=== PATIENT | female | born 1985 | race Caucasian/White ===

== ENCOUNTER 2019-09-03 18:48 | Inpatient (IN) | payer OTHER ==
[~2019-09-03] VITALS: Ht 180.3 cm; Wt 77.3 kg
[2019-09-03] MEDS ORDERED: OXYTOCIN 30U/ 0.9% NaCL 500ML 500 ML IV ONE (18:54)
[2019-09-03] MEDS ORDERED: LACTATED RINGERS 1,000 ML IV SCH (18:54)
[2019-09-03] MEDS ORDERED: D5%-LACTATED RINGERS 1,000 ML IV SCH (18:54)
[2019-09-03] MEDS ORDERED: FENTANYL PF 100 MCG/2ML IVPush PRN (19:00)
[2019-09-03] MEDS ORDERED: SODIUM CITRATE/CITRIC ACID 30 ML UDC PO PRN (19:00)
[2019-09-03] MEDS ORDERED: TERBUTALINE 1 MG/ML, 1ML SQ PRN (19:00)
[2019-09-03] MEDS ORDERED: CALCIUM CARBONATE 500 MG TAB.CHEW PO PRN (19:00)
[2019-09-03] MEDS ORDERED: ONDANSETRON 2MG/ML, 2ML IVPush PRN (19:00)
[2019-09-03] MEDS ORDERED: METOCLOPRAMIDE 5 MG/ML, 2ML IVPush PRN (19:00)
[2019-09-03] MEDS ORDERED: TERBUTALINE 1 MG/ML, 1ML IVPush PRN (19:00)
[2019-09-03] MEDS ORDERED: FENTANYL PF 100 MCG/2ML IV PRN (19:00)
[2019-09-03] MEDS ORDERED: OXYTOCIN 30U/ 0.9% NaCL 500ML 500 ML ONE (19:03)
[2019-09-03] MEDS ORDERED: NEWBORN KIT ONE (19:03)
[2019-09-03 19:10] LABS: MEAN CORPUSCULAR HEMOGLOBIN 31.3 pg (27.0-34.8); MEAN CORPUSCULAR HGB CONC 33.9 g/dL (32.4-35.8); MEAN CORPUSCULAR VOLUME 92.5 fL (80-100); MEAN PLATELET VOLUME 7.7 fL (7.4-10.4); PLATELET COUNT 286 x10^3/uL (130-400); RED BLOOD COUNT 4.17 x10^6/uL (3.82-5.3); RED CELL DISTRIBUTION WIDTH 12.7 % (9.6-15.2)
[2019-09-03 19:32] LABS: MD YES
[2019-09-03 19:36] LABS: LYMPH#(MANUAL) 2.31 x10^3/uL (1-3.4); LYMPHS% (MANUAL) 14 % (22-44); MONOS#(MANUAL) 0.66 x10^3/uL (0.3-2.7); MONOS% (MANUAL) 4 % (2-9); SEG#(MANUAL) 13.53 x10^3/uL (1.8-6.8); SEGS% (MANUAL) 82 % (42-75)
[2019-09-03 19:41] LABS: <RBC MORPHOLOGY> NORMAL
[2019-09-03 19:42] LABS: <PLATELET ESTIMATE> ADEQUATE; <PLT MORPHOLOGY> NORMAL PLT MORPH
[2019-09-03] MEDS ORDERED: FENTANYL PF 100 MCG/2ML ONE (20:36)
[2019-09-03] MEDS: OXYTOCIN 30U/ 0.9% NaCL 500ML 500 ML IV SCH (21:08)
[2019-09-03] MEDS ORDERED: ACETAMINOPHEN 325 MG TABLET PO PRN (21:30)
[2019-09-03] MEDS ORDERED: MISOPROSTOL 200 MCG TABLET PR PRN (21:30)
[2019-09-03] MEDS ORDERED: OXYcodone/APAP 5/325MG TABLET PO PRN (21:30)
[2019-09-03] MEDS ORDERED: ONDANSETRON 2MG/ML, 2ML IV PRN (21:30)
[2019-09-03] MEDS ORDERED: SIMETHICONE 80 MG CHEW TAB PO PRN (21:30)
[2019-09-03 22:05] VITALS: BP 122/75
[2019-09-04 02:00] VITALS: BP 107/61
[2019-09-04 05:00] LABS: MEAN CORPUSCULAR HEMOGLOBIN 31.2 pg (27.0-34.8); MEAN CORPUSCULAR HGB CONC 33.8 g/dL (32.4-35.8); MEAN CORPUSCULAR VOLUME 92.1 fL (80-100); MEAN PLATELET VOLUME 7.9 fL (7.4-10.4); PLATELET COUNT 243 x10^3/uL (130-400); RED BLOOD COUNT 3.78 x10^6/uL (3.82-5.3); RED CELL DISTRIBUTION WIDTH 12.6 % (9.6-15.2)
[2019-09-04 05:40] VITALS: BP 99/54
[2019-09-04 05:56] LABS: BASOPHILS # (AUTO) 0.05 x10^3/uL (0-0.1); BASOPHILS % (AUTO) 0 % (0-1); EOSINOPHILS # (AUTO) 0.03 x10^3/uL (0-0.4); EOSINOPHILS % (AUTO) 0 % (1-7); LYMPHOCYTES # (AUTO) 2.21 x10^3/uL (1-3.4); LYMPHOCYTES % (AUTO) 12 % (22-44); MD SCAN; MONOCYTES # (AUTO) 1.04 x10^3/uL (0.2-0.8); MONOCYTES % (AUTO) 6 % (2-9); NEUTROPHILS # (AUTO) 15.19 x10^3/uL (1.8-6.8); NEUTROPHILS % (AUTO) 82 % (42-75)
[2019-09-04] MEDS: OXYTOCIN 30U/ 0.9% NaCL 500ML 500 ML IV SCH ×2 (07:08→17:08)
[2019-09-04 08:05] VITALS: BP 116/73
[2019-09-04 12:50] VITALS: BP 106/64
[2019-09-04 16:20] VITALS: BP 124/75
[2019-09-04] MEDS: PRENATAL VIT/IRON/FA 1 EACH TABLET PO SCH (18:31)
[2019-09-04] MEDS: DOCUSATE 100 MG CAPSULE PO PRN (18:31)
[2019-09-04] MEDS: IBUPROFEN 600 MG TABLET PO PRN (18:31)
[2019-09-04 20:00] VITALS: BP 108/68
[2019-09-05] MEDS: OXYTOCIN 30U/ 0.9% NaCL 500ML 500 ML IV SCH (03:08)
[2019-09-05] MEDS: IBUPROFEN 600 MG TABLET PO PRN (06:00)
[2019-09-05 07:41] VITALS: BP 98/61
[2019-09-05] MEDS: DOCUSATE 100 MG CAPSULE PO PRN (08:30)
[2019-09-05] MEDS: PRENATAL VIT/IRON/FA 1 EACH TABLET PO SCH (08:30)
[2019-09-05] MEDS ORDERED: IBUP-1222 PO (10:28)
== END 2019-09-05 14:15 | disposition home or self-care (01) | DRG 807 ==
LOC: LDOP 18:48 → LDIP 18:58 → 2NW 21:53
PROVIDERS: ADMIT Obstetrics & Gynecology; ATTEND Obstetrics & Gynecology
PROC: 10E0XZZ Delivery of Products of Conception, External Approach (ICD-10-PCS; principal; 2019-09-03)
PROC: 0UQGXZZ Repair Vagina, External Approach (ICD-10-PCS; 2019-09-03)
DX: O69.81X0 Labor and delivery complicated by cord around neck, without compression, not applicable or unspecified (principal); Z37.0 Single live birth; Z3A.39 39 weeks gestation of pregnancy; Z80.1 Family history of malignant neoplasm of trachea, bronchus and lung; Z80.3 Family history of malignant neoplasm of breast; Z83.3 Family history of diabetes mellitus; O80 Encounter for full-term uncomplicated delivery; O71.89 Other specified obstetric trauma
CPT/HCPCS: 36415; 85025; 86592; 86850; 86900; G0378; J2590; J7120

== ENCOUNTER 2019-10-22 12:17 | Day surgery (SDC) | payer OTHER ==
[~2019-10-22] VITALS: Ht 180.3 cm; Wt 67.0 kg
[~2019-10-22 12:17] MED LIST: IBUP-1222 PO; METHYLERGONOVINE 0.2 MG/ML IM ONE; MISOPROSTOL 200 MCG TABLET ONE; OXYTOCIN 10 UNITS/ML, 1ML ONE; SILVER NITRATE STICK TP ONE
[2019-10-22] MEDS ORDERED: LACTATED RINGERS 1,000 ML IV SCH (13:05)
[2019-10-22] MEDS ORDERED: PRENATAL PO (13:18)
[2019-10-22 13:19] VITALS: BP 121/82
[2019-10-22 13:25] LABS: HCG UR SG 1.002 (1.003-1.030)
[2019-10-22] MEDS ORDERED: CHLORHEXIDINE 15 ML UDC MM ONE (13:30)
[2019-10-22 14:01] LABS: BASOPHILS # (AUTO) 0.02 x10^3/uL (0-0.1); BASOPHILS % (AUTO) 0 % (0-1); EOSINOPHILS # (AUTO) 0.04 x10^3/uL (0-0.4); EOSINOPHILS % (AUTO) 1 % (1-7); LYMPHOCYTES # (AUTO) 2.26 x10^3/uL (1-3.4); LYMPHOCYTES % (AUTO) 32 % (22-44); MD NO; MEAN CORPUSCULAR HEMOGLOBIN 30.1 pg (27.0-34.8); MEAN CORPUSCULAR HGB CONC 33.5 g/dL (32.4-35.8); MEAN CORPUSCULAR VOLUME 89.9 fL (80-100); MEAN PLATELET VOLUME 7.2 fL (7.4-10.4); MONOCYTES # (AUTO) 0.37 x10^3/uL (0.2-0.8); MONOCYTES % (AUTO) 5 % (2-9); NEUTROPHILS # (AUTO) 4.33 x10^3/uL (1.8-6.8); NEUTROPHILS % (AUTO) 62 % (42-75); PLATELET COUNT 343 x10^3/uL (130-400); RED BLOOD COUNT 4.75 x10^6/uL (3.82-5.3); RED CELL DISTRIBUTION WIDTH 11.8 % (9.6-15.2)
[2019-10-22] MEDS ORDERED: LABETALOL 5MG/ML, 20ML IV PRN (15:30)
[2019-10-22] MEDS ORDERED: HALOPERIDOL 5 MG/ML IV PRN (15:30)
[2019-10-22] MEDS ORDERED: HYDROmorphone 1 MG/ML, 1ML INJ IVPush PRN (15:30)
[2019-10-22] MEDS ORDERED: PROMETHAZINE 25 MG/ML, 1ML IVPush PRN (15:30)
[2019-10-22] MEDS ORDERED: DIPHENHYDRAMINE 50 MG/ML, 1ML IVPush PRN (15:30)
[2019-10-22] MEDS ORDERED: hydrALAzine 20 MG/ML, 1ML IV PRN (15:30)
[2019-10-22] MEDS ORDERED: FENTANYL PF 100 MCG/2ML IV PRN (15:30)
[2019-10-22] MEDS ORDERED: OXYcodone 5 MG/5 ML ORAL.SOL UDC PO PRN (15:30)
[2019-10-22] MEDS ORDERED: MEPERIDINE/PF 25MG/0.5ML IVPush PRN (15:30)
[2019-10-22] MEDS ORDERED: MIDAZOLAM 1 MG/ML, 2ML ONE (15:32)
[2019-10-22] MEDS ORDERED: FENTANYL PF 250 MCG/5ML ONE (15:32)
[2019-10-22] MEDS ORDERED: PROPOFOL 10 MG/ML, 20ML ONE (16:12)
[2019-10-22] MEDS ORDERED: DEXAMETHASONE 4 MG/ML, 1ML ONE (16:12)
[2019-10-22] MEDS ORDERED: ONDANSETRON 2MG/ML, 2ML ONE ×2 (16:12→16:30)
[2019-10-22] MEDS ORDERED: CEFAZOLIN 1,000 MG ONE (16:12)
[2019-10-22] MEDS ORDERED: ONDANSETRON 2MG/ML, 2ML IVPush PRN (16:30)
== END 2019-10-22 18:30 | disposition home or self-care (01) ==
LOC: OUT 12:17
PROVIDERS: ATTEND Obstetrics & Gynecology
DX: O73.1 Retained portions of placenta and membranes, without hemorrhage (principal); Z11.59 Encounter for screening for other viral diseases; Z72.89 Other problems related to lifestyle; Z79.899 Other long term (current) drug therapy; Z98.890 Other specified postprocedural states; Z90.49 Acquired absence of other specified parts of digestive tract
CPT/HCPCS: 36415; 59160; 81025; 85025; 86850; 86900; 87635; 88305; J0690; J1100; J2210; J2250; J2405; J2704; J3010; J7120; J2590